=== PATIENT | female | born 1995 | race Caucasian/White ===

== ENCOUNTER 2016-12-30 12:33 | Emergency (ER) | payer SELFPAY ==
[2016-12-30 12:51] VITALS: BP 110/70
[2016-12-30] MEDS: methylPREDNISolone ACETATE 80 MG/ML VIAL IM ONE (13:00)
--- NOTE | 2016-12-30 13:07 | ED Physician Documentation ---
General Adult - HISTORIAN Historian: patient, friend - HPI Stated Complaint: rash Chief Complaint: General Adult Additional Information: insect bite in bed 2d ago in [place] [facility] behind rt ear now spreading rash puritis occ mild nausea. did not see the insect-no tick found Onset: days ago (2) Timing: still present Severity: moderate - ROS CONST: no problems EYES/ENT: none CVS/RESP: none GI/: none MS/SKIN/LYMPH: rash. denies: swollen glands, leg pain, back pain, ankle swelling NEURO/PSYCH: denies: headache, fainting, dizziness - PAST HX Past History: none Surgeries/Procedures: BTL Immunizations: UTD Allergies/Adverse Reactions: Allergies Allergy/AdvReac Type Severity Reaction Status Date / Time amoxicillin Allergy Verified 12/30/16 12:52 latex Allergy Verified 12/30/16 12:52 Home Medications: Ambulatory Orders Medication Instructions Recorded NK [NK] 12/30/16 - SOCIAL HX Smoking History: cigarettes Alcohol Use: none Drug Use: marijuana (thc while in [place]) - FAMILY HX Family History: No - VITAL SIGNS Vital Signs: Vital Signs Temp Pulse Resp BP Pulse Ox 97.1 F L 80 16 110/70 100 12/30/16 12:46 12/30/16 12:46 12/30/16 12:46 12/30/16 12:46 12/30/16 12:46 - REVIEWED ASSESSMENTS Nursing Assessment Reviewed: Yes Vitals Reviewed: Yes ED Results Lab/Radiology - Orders Orders: ED Orders Category Date Time Status methylPREDNISolone ACETATE [Depo-Medrol] Med 12/30/16 13:02 Once 80 mg IM NOW ONE General Adult Physical Exam - PHYSICAL EXAM GENERAL APPEARANCE: mild distress EENT: eye inspection normal NECK: normal inspection, thyroid normal, supple. No: thyromegaly, lymphadenopathy, stiff neck RESPIRATORY: no resp distress, chest non-tender, breath sounds normal CVS: reg rate & rhythm, heart sounds normal ABDOMEN: soft, non-tender BACK: other (genl skin rash - no urticaria) SKIN: warm/dry, normal color, other (rash as aforementioned). No: cyanosis, diaphoresis, jaundice NEURO: oriented X3, CN's nml as tested, motor nml, sensation nml, mood/affect nml Discharge Clincal Impression: skin rash from insect bite Home Medications: Ambulatory Orders NK [NK] 12/30/16 Condition: Good Disposition: 01 HOME, SELF-CARE Decision to Admit: NO Decision Time: 13:10
== END 2016-12-30 13:14 | disposition home or self-care (01) ==
LOC: ED 12:33
DX: S00.461A Insect bite (nonvenomous) of right ear, initial encounter (principal)
CPT/HCPCS: 96374; 99283; J1040